=== PATIENT | female | born 1960 | race Caucasian/White ===

== ENCOUNTER 2020-05-11 16:51 | Inpatient (IN) | payer OTHER, SELFPAY ==
[2020-05-11] VITALS (12 sets, daily range): BP systolic 98–142; BP diastolic 68–110; PULSE 106–129; RESP 12–22; TEMP 36.3–36.4; O2SAT 98–100; BMI 28.0
--- NOTE | 2020-05-11 16:56 | ED_ITS ---
HPI - Chest Pain General Stated Complaint: unresponsive - STEMI Time Seen by Provider: 05/11/20 16:53 Source: patient and EMS Mode of arrival: EMS Limitations: altered mental status History of Present Illness HPI narrative: Patient presents via EMS with an EKG that shows acute STEMI. They were called to the house for severe chest pain. She went into V. tach twice in route and needed shocking. Both times she responded quickly. When she arrived here she was unconscious. She slowly regained consciousness and when I asked how she felt she said fine. I woke her up to explain that she was going to the cardiac [facility] and she seems surprised. She is unable to answer asked questions but she is able to answer them. Dr. Banks is here to take her to the cardiac [facility]. Her history includes mitral valve replacement but has Dr. Banks points out there is no scar on her chest. MD complaint: chest pain Pertinent past history: other (Mitral valve disease) Onset (ago): hour(s) Timing of current episode: constant Onset: during rest Severity: severe Review of Systems Review of Systems: Narrative: Review of systems unavailable because the pa gretel is having difficulty with communication. [facility], [facility] Past Medical History Medical History (Updated 05/11/20 @ 16:58 by Valerie Prado MD) Acute [place] ST elevation (STEMI) myocardial infarction Exam Narrative: Exam Narrative: GENERAL: Unconscious, pale, diaphoretic. HEAD: Normocephalic, atraumatic. ENT: Nares clear, no rhinorrhea or epistaxis. Mucous membranes moist. NECK: Supple. CHEST: Clear to auscultation. No respiratory distress. HEART: Regular rate and rhythm. No murmur heard. Normal peripheral pulses. ABDOMEN: Soft, nontender, nondistended, normal active bowel sounds. EXTREMITIES: Normal range of motion. No edema. SKIN: Warm, dry, no rash. NEURO: Initially unconscious and slowly waking up.. Course Consultations Consultation #1: STEMI called and Dr. Banks responded quickly. Date: 05/11/20 Time: 16:59 MDM - Chest Pain Differential Diagnosis Differential diagnosis: Likely st elevation myocardial infarction Medical Records Data Attestation: I reviewed the patient's medical records. Critical Care Time Critical Care Time Critical Care Time: Yes Total Critical Care Time: 30 Discharge Plan Discharge Clinical Impression: Acute [place], ST elevation (STEMI) myocardial infarction, V tach Patient Disposition: Still a Patient Condition: Guarded Prognosis
--- NOTE | 2020-05-11 16:58 | ECG_ITS ---
Measurements Intervals [place] Rate: 124 P: CT: 0 QRS: -39 QRSD: 101 T: 89 QT: 316 QTc: 455 Interpretive Statements ATRIAL FIBRILLATION WITH RAPID VENTRICULAR RESPONSE LEFT AXIS DEVIATION DELAYED PRECORDIAL R/S TRANSITION ST ABNORMALITY IN INF/LAT LEADS- CONSIDER ISCHEMIA BASELINE WANDER- II, III, ABNORMAL ECG Electronically Signed On 05-12-2020 6:53:44 CDT by Bony Castellon D.O.
[2020-05-11 17:11] LABS: Basophils Absolute Auto 0.1 K/mm3 (0.0-0.1); Basophils Percent Auto 0.6 % (0.2-1.2); Eosinophils Absolute Auto 0.2 K/mm3 (0-0.3); Eosinophils Percent Auto 1.1 % (0-4.4); Hematocrit 43.3 % (37.0-47.0); Hemoglobin 14.6 g/dL (12.0-15.0); Immature Granulocyte Absolute 0.04 K/mm3 (0.00-0.031); Immature Granulocyte Percent A 0.3 % (0-0.5); Lymphocytes Absolute Auto 6.88 K/mm3 (0.9-3.2); Lymphocytes Percent Auto 43.4 % (18.3-44.2); Mean Corpuscular HGB Conc 33.7 g/dl (32-36); Mean Corpuscular Hemoglobin 30.5 pg (26-34); Mean Corpuscular Volume 90.6 fl (80-100); Mean Platelet Volume 10.9 fl (7.4-10.4); Monocytes Absolute Auto 1.4 K/mm3 (0.1-0.6); Monocytes Percent Auto 8.9 % (2.6-8.5); Neutrophils Absolute Auto 7.3 K/mm3 (1.3-6.7); Neutrophils Percent Auto 45.7 % (45.5-73.1); Platelet Count Result 296 k/mm3 (150-375); Red Blood Count 4.78 M/mm3 (4.2-5.4); Red Cell Distribution Width 12.8 % (11.5-14.5); White Blood Count 15.9 K/mm3 (4.5-10.0)
[2020-05-11 17:20] LABS: INR 1.1; Prothrombin Time 13.6 Seconds (11.1-14.7)
[2020-05-11 17:25] LABS: Add Urine Microscopic? YES; Appearance Urine Clear (Clear); Bilirubin Urine Negative (Negative); Blood Urine 1+ (Negative); Color Urine Yellow (Yellow); Glucose Urine UA Negative (Negative); Ketones Urine Negative (Negative); Leukocyte Esterase Ur Negative LEU/UL (Negative); Mucus Urine Rare /lpf; Nitrate Urine Negative (Negative); Protein Urine 1+ mg/dL (Negative); Specific Grav Ur 1.012 (1.001-1.035); Squamous Epithelial Cell Urine Rare /hpf (Few); Urobilinogen Urine Negative mg/dL (<2.0); WBC Urine 0-3 /hpf
--- NOTE | 2020-05-11 17:28 | PC.NURSE ---
1635 EMS faxed over EKG and called a STEMI in the field. 1639 gave EMS report for STEMI 1640 Cath paged for code STEMI 1645 EMS called back to state Pt. went unresponsive. Pt. was shocked x2 in the field with v tach and v fib. Pt. was shocked into sinus tach. Pt. was given 4 baby aspirins by EMS and 1 nitro spray. 1650 EMS arrives to ED. 1650 labview programmer team arrives. 1650 Pt. is unresponsive but breathing with a strong carotid pulse. Pt. is in sinus tachycardia. 1650 Pt. is on 4L via nasal cannula of O2. 1652 Second IV obtained [address] 1658 Hospital EKG obtained 1704 Blood and urine sent to lab. 1710 wastewater analyst lab analyst team takes Pt. to the labview programmer.
[2020-05-11 17:36] LABS: Troponin I < 0.012 ng/mL (0.000-0.034)
[2020-05-11 17:39] LABS: NT Pro B Type Natriuretic Pept 745 PG/ML (5-100)
[2020-05-11 17:41] LABS: Albumin Level 4.9 g/dL (3.5-5.1); Alkaline Phosphatase 63 U/L (38-126); Anion Gap 26 mmol/L (8-16); Aspartate Amino Transferase 52 U/L (14-36); Bilirubin,Total 0.7 mg/dL (0.2-1.3); Blood Urea Nitrogen 16 mg/dL (7-17); Calcium 9.8 mg/dL (8.4-10.2); Carbon Dioxide 11 mmol/L (22-30); Chloride 98 mmol/L (98-107); Estimated Glomerular Filt Rate 42; Glucose 209 mg/dL (65-105); Potassium 3.4 mmol/L (3.4-5.0); Sodium 135 mmol/L (137-145)
[2020-05-11 17:58] LABS: Alanine Aminotransferase 34 U/L (4-35)
--- NOTE | 2020-05-11 18:13 | ECG_ITS ---
Measurements Intervals [place] Rate: 116 P: NC: 0 QRS: 5 QRSD: 114 T: 108 QT: 333 QTc: 463 Interpretive Statements ATRIAL FIBRILLATION WITH RAPID VENTRICULAR RESPONSE INTRAVENTRICULAR CONDUCTION DELAY DELAYED PRECORDIAL R/S TRANSITION ST-T WAVE ABNORMALITY IN HIGH LATERAL LEADS- CONSIDER ISCHEMIA BASELINE ARTIFACT- II, III, AVR, AVL, AVF ABNORMAL ECG Electronically Signed On 05-12-2020 7:04:26 CDT by Bony Castellon D.O.
--- NOTE | 2020-05-11 18:22 | WPDCARDPROC ---
Cardiac Cath Procedure Note Date of procedure:: 05/11/20 Performing physician:: Earl Banks MD Indication:: acute ST-elevation DC ventricular fibrillation history of mitral valve annuloplasty Brief clinical history:: this is a 58-year-old woman known to me prior to this encounter she came to the hospital by EMS where she was at home experiencing severe retrosternal chest burning. On the scene the patient arrest with ventricular fibrillation and was cover shock. Electrocardiogram in the field appeared to be compatible with acute ST-elevation DC anterolateral wall. On route she had another episode of the fibula was counter shocked a 2nd time. In this setting emergency angiogram has been requested. Procedure Procedure performed:: Emergency coronary angiography emergency left main PCI IVUS of the left main following stenting left ventriculography Sedation/Medication given:: no sedation provided in the quality assurance qa lab analyst Access site:: right femoral artery Estimated blood loss:: 50 cc Procedure note:: patient was brought to the catheterization lab in the emergency setting described above. Patient was lethargic and soft semi responsive was not sedated for lidocaine was injected following sterile prep of the right femoral triangle and using the modified Seldinger technique the femoral artery was punctured and a 6 [place] vascular sheath was placed. After this I used a 5 [place] JR4 catheter to engage inject the right coronary artery. Following this the left coronary artery was engaged and injected using a 6 [place] CLS 3.5 guiding catheter. Following this emergency left main intervention was carried out as detailed below. Following intervention the left main was examined with intravascular ultrasound. Following this the interventional equipment was withdrawn and a 5 [place] angled pigtail catheter was used to perform a left ventriculogram in the demonstrate left-sided hemodynamics. The sheath was sutured in position. The patient was taken to the ICU for post DC PCI recovery. The patient was stable hemodynamically and hemodynamic support was not felt to be necessary. Findings:: Hemodynamics: Central aortic pressure is 128/84 left ventricle 128/5 end-diastolic pressure 22. There is no gradient across the aortic valve on pullback. Left ventricle: The LV is of normal size the entire anterolateral wall is akinetic. The infero posterior segment is hyperdynamic the global ejection fraction is about 25% the left main coronary artery is 100% occluded in its midportion appearance of this is an acute abrupt thrombotic occlusion. The right coronary artery is very large in caliber dominant to the posterior circulation with several large posterolateral branches as well. The right coronary artery is widely patent and angiographically normal. The left main coronary occlusion was crossed using a 0.014 BMW coronary guidewire. Following this there was reasonably good flow in the left main just crossing it with a guidewire. The left main was then pre-dilated using a 3 x 15 mm emerge PTCA balloon. Following this I placed a 2.014nd BMW wire into the left anterior descending as the 1st wire was in small branch of the circumflex. After this the 1st guidewire was withdrawn. Following this the mid left main occlusion the target lesion was stented using a 3.5 by 15 mm Orsiro stent with very good angiographic result. Following this volcano IVUS imaging was used to document good stent strut apposition. The imaging did demonstrate incomplete expansion of the stent in the proximal segment. There was therefore expanded further using a 4 by 15 mm noncompliant balloon at 20 atmospheres. Following this I have a still demonstrated suboptimal stent apposition and I used a 5 mm x 15 noncompliant balloon at 5 atmospheres which provided very good strut apposition. The patient was remarkably stable hemodynamically during this procedure. The sheath was sutured into positi
--- NOTE | 2020-05-11 18:34 | PM.IMHP ---
H&P: HPI History of Present Illness Date/Time: date of service:05/11/20 18:34 Chief complaint: Acute myocardial infarction, VFib Narrative: Ted Rasmussen is a 58 year old female Who is unknown to me prior to this encounter. I came to see the patient in the emergency room. She was brought to the hospital by EMS complaining of burning chest pain that began acutely at her home. While being evaluated she or abruptly developed ventricular fibrillation and was counter shocked back to sinus rhythm in the field. Her electrocardiogram demonstrated evidence of acute anterolateral infarction. On route I believe she developed VFib a 2nd time it was counter shocked a 2nd time. Apparently there is no previous history of coronary artery disease she has a history of mitral valve repair in the past we do not have any records regarding that band at this time. Patient is semi responsive and not able to provide any additional history. Review of Systems Review of Systems: ROS unobtainable: Yes unobtainable due to medical condition [facility] Past Medical History Medical History (Updated 05/11/20 @ 16:58 by Valerie Prado MD) Acute [place] ST elevation (STEMI) myocardial infarction Social History Social History Gender identity (if verbalized by the patient): Female Meds Home Medications and Allergies Allergies Allergy/AdvReac Type Severity Reaction Status Date / Time No Known Allergies Allergy Verified 05/11/20 17:42 Vital Signs Vital Signs - 24 hr 05/11/20 16:50 Temperature 36.3 C L Pulse Rate 129 H Respiratory Rate 21 H Blood Pressure 142/110 H Pulse Oximetry 99 Exam Const: Other: Semi responsive white female appears to be her stated age HENMT: Mouth: Yes dry mucous membranes Eyes: Sclera: sclerae normal Pupils: Equal, round and reactive pupils present Neck: Neck: supple and no JVD Thyroid: thyroid normal Other: carotid upstrokes are intact no obvious bruits Resp: Effort & Inspection: normal respiratory effort Other: rales about 1/3 up on both sides Cardio: Rate: regular rate Rhythm: regular rhythm Other: no murmur no gallop S1-S2 are normal but diminished in intensity GI: Auscultation: normal bowel sounds : External Female Exam: normal external appearance Skin: General skin exam: normal color Neuro: Other: lethargic semi responsive white female Extrem: General: normal to inspection H&P: Results Labs Labs: Short CBC 05/11/20 Range/Units 17:04 WBC 15.9 H (4.5-10.0) K/mm3 Hgb 14.6 (12.0-15.0) g/dL Hct 43.3 (37.0-47.0) % Plt Count 296 (150-375) k/mm3 BMP 05/11/20 17:04 Sodium 135 L Potassium 3.4 Chloride 98 Carbon Dioxide 11 L BUN 16 Creatinine 1.30 H Glucose 209 H Calcium 9.8 Cardiac Enzymes 05/11/20 Range/Units 17:04 Troponin I < 0.012 (0.000-0.034) ng/mL Liver Function 05/11/20 Range/Units 17:04 Total Bilirubin 0.7 (0.2-1.3) mg/dL AST 52 H (14-36) U/L ALT 34 (4-35) U/L Alkaline Phosphatase 63 (38-126) U/L Albumin 4.9 (3.5-5.1) g/dL Urine 05/11/20 Range/Units 17:05 Urine Color Yellow (Yellow) Urine Appearance Clear (Clear) Urine pH 6.0 (5.0-9.0) Ur Specific [place] 1.012 (1.001-1.035) Urine Protein 1+ H (Negative) mg/dL Urine Glucose (UA) Negative (Negative) mg/dL Assessment and Plan Additional Plan acute ST segment elevation NC in this 58-year-old lady with history of previous mitral valve repair. Plans are being made for emergency angiography and revascularization as indicated by those findings Earl Banks MD [facility]
[2020-05-11] MEDS: AMIODARONE 360 MG/D5W 200 ML 360 MG/200 ML BAG 33.3 MG IV CONT (19:47)
[2020-05-11] MEDS: SODIUM CHLORIDE 0.45% 1,000 ML 125 ML IV CONT (19:47)
[2020-05-11 20:25] LABS: Cholesterol 191 mg/dL (0-200); HDL Direct 56 mg/dL; Triglycerides 115 mg/dL (<150)
[2020-05-11] MEDS: TICAGRELOR 90 MG TABLET 180 MG PO (20:28)
[2020-05-11 20:36] LABS: LDL Cholesterol Direct 101 mg/dL
[2020-05-11 21:07] LABS: Amphetamine Screen Urine Negative (Negative); Barbiturate Screen Urine Negative (Negative); Benzodiazepines Screen Urine Positive (Negative); Cannabinoid Screen Urine Positive (Negative); Cocaine Screen Urine Negative (Negative); Methadone Screen Urine Negative (Negative); Opiate Screen Urine Negative (Negative); Phencyclidine Screen Urine Negative (Negative)
[2020-05-12] VITALS (21 sets, daily range): BP systolic 86–137; BP diastolic 63–97; PULSE 95–122; RESP 12–22; TEMP 36.7–37.2; O2SAT 95–100
[2020-05-12] MEDS: AMIODARONE 360 MG/D5W 200 ML 360 MG/200 ML BAG 16.7 MG IV CONT ×2 (01:38→13:24)
[2020-05-12] MEDS: SODIUM CHLORIDE 0.45% 1,000 ML 125 ML IV CONT ×2 (04:05→11:26)
--- NOTE | 2020-05-12 05:11 | ECG_ITS ---
Measurements Intervals [place] Rate: 118 P: SD: 0 QRS: -27 QRSD: 95 T: 121 QT: 319 QTc: 448 Interpretive Statements ATRIAL FIBRILLATION WITH RAPID VENTRICULAR RESPONSE BORDERLINE R WAVE PROGRESSION, ANTERIOR LEADS ST-T WAVE ABNORMALITY IN HIGH LATERAL LEADS- CONSIDER ISCHEMIA ABNORMAL ECG Electronically Signed On 05-12-2020 9:23:49 CDT by Bony Castellon D.O.
[2020-05-12 08:18] LABS: Basophils Percent Auto 0.2 % (0.2-1.2); Eosinophils Percent Auto 0.1 % (0-4.4); Hematocrit 38.9 % (37.0-47.0); Hemoglobin 13.3 g/dL (12.0-15.0); Immature Granulocyte Absolute 0.07 K/mm3 (0.00-0.031); Immature Granulocyte Percent A 0.5 % (0-0.5); Lymphocytes Absolute Auto 2.09 K/mm3 (0.9-3.2); Lymphocytes Percent Auto 14.3 % (18.3-44.2); Mean Corpuscular HGB Conc 34.2 g/dl (32-36); Mean Corpuscular Hemoglobin 30.3 pg (26-34); Mean Corpuscular Volume 88.6 fl (80-100); Mean Platelet Volume 10.5 fl (7.4-10.4); Monocytes Absolute Auto 0.8 K/mm3 (0.1-0.6); Monocytes Percent Auto 5.3 % (2.6-8.5); Neutrophils Absolute Auto 11.6 K/mm3 (1.3-6.7); Neutrophils Percent Auto 79.6 % (45.5-73.1); Platelet Count Result 258 k/mm3 (150-375); Red Blood Count 4.39 M/mm3 (4.2-5.4); Red Cell Distribution Width 12.9 % (11.5-14.5); White Blood Count 14.6 K/mm3 (4.5-10.0)
[2020-05-12] MEDS: LOSARTAN POTASSIUM 12.5 MG TABLET PO (08:26)
[2020-05-12] MEDS: ASPIRIN 81 MG CHEWABLE TABLET PO (08:26)
[2020-05-12] MEDS: ROSUVASTATIN 10 MG TABLET 20 MG PO (08:27)
[2020-05-12] MEDS: SPIRONOLACTONE 12.5 MG TABLET PO (08:27)
[2020-05-12 08:48] LABS: Alanine Aminotransferase 31 U/L (4-35); Albumin Level 4.1 g/dL (3.5-5.1); Alkaline Phosphatase 64 U/L (38-126); Anion Gap 9 mmol/L (8-16); Aspartate Amino Transferase 62 U/L (14-36); Bilirubin,Total 0.4 mg/dL (0.2-1.3); Blood Urea Nitrogen 13 mg/dL (7-17); Calcium 8.6 mg/dL (8.4-10.2); Carbon Dioxide 22 mmol/L (22-30); Chloride 97 mmol/L (98-107); Estimated CRCL calculation 69 ml/min; Estimated Glomerular Filt Rate > 60; Glucose 144 mg/dL (65-105); Magnesium 1.8 mg/dL (1.6-2.3); Potassium 3.9 mmol/L (3.4-5.0); Sodium 128 mmol/L (137-145)
[2020-05-12] MEDS: TICAGRELOR 90 MG TABLET PO ×2 (09:20→21:32)
[2020-05-12] MEDS: carvediloL 3.125 MG TABLET PO (09:20)
[2020-05-12] MEDS: ONDANSETRON INJ 4 MG/2 ML VIAL IV PUSH ×2 (10:28→15:34)
--- NOTE | 2020-05-12 10:44 | WPDCNINT ---
Assessment and Plan Assessment and plan (1) ST elevation (STEMI) myocardial infarction: Code(s): I21.3 - ST elevation (STEMI) myocardial infarction of unspecified site Status: Acute Assessment and Plan: status post PCI of left main coronary artery and drug-eluting stent placement continue aspirin Coreg losartan Crestor and Brilinta (2) V tach: Code(s): I47.2 - Ventricular tachycardia Status: Acute Assessment and Plan: likely secondary to ischemia. Patient currently on amiodarone infusion which she will complete today. Continue beta-earlene further amiodarone dosing per cardiology will give 1 g of magnesium sulfate for Mag level of 1.8 (3) Ischemic cardiomyopathy: Code(s): I25.5 - Ischemic cardiomyopathy Status: Acute Assessment and Plan: left ventriculogram suggested EF of 25% echo ordered and pending hemodynamically stable on ARB, beta-earlene and Aldactone (4) Essential hypertension: Code(s): I10 - Essential (primary) hypertension Status: Acute Assessment and Plan: blood pressure uncontrolled range with current beta-earlene and losartan does monitor and treat as needed (5) Hyperlipidemia: Code(s): E78.5 - Hyperlipidemia, unspecified Status: Acute Assessment and Plan: continue crest (6) Nausea: Code(s): R11.0 - Nausea Status: Acute Assessment and Plan: Zofran p.r.n. 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 On arrival to ED patient was found to be having ST-elevation VT. Patient was taken for emergency cardiac catheterization which showed lesion in left main coronary artery and a drug-eluting stent was placed. Patient also started on amiodarone infusion. Post procedure patient was admitted to ICU for further evaluation management. When I saw this patient this morning she complains of nausea did not had any episode of vomiting overnight. Does want to try food this morning as she was NPO until this morning. She denies any chest pain at this time or shortness of breath. Feels anxious about all her medical concerns and requesting that her Xanax be resumed Patient denies fever, chest pain, shortness of breath, cough, body aches, abdominal pain,, diarrhea, headache or constipation. Review of Systems Review of Systems: All systems reviewed & are unremarkable except as noted in HPI and below (HPI) [facility] Past Medical History Medical History Acute [place] ST elevation (STEMI) myocardial infarction Family History Family History (Updated 05/11/20 @ 19:11 by Marge Gregg RN) Mother Diabetes mellitus Hypertension Father Colon cancer Diabetes mellitus Congestive heart failure (CHF) Hypertension Kidney disease Colon adenocarcinoma Sibling Diabetes mellitus Social History Social History Years smoked: 2 Smoking status: Former smoker Tobacco type: cigarettes Smoking end date: 03/24/20 Alcohol intake: never Substance use: never Substance use type: does not use Gender identity (if verbalized by the patient): Female Spiritual care concerns: No Meds Home Medications and Allergies Home Medications Medication Instructions Recorded Confirmed Type alprazolam [Xanax] 1 mg PO TID PRN 05/11/20 05/11/20 History bupropion HCl 150 mg PO QAM
[2020-05-12] MEDS: ALPRAZolam 0.5 MG TABLET 1 MG PO ×2 (10:54→16:11)
[2020-05-12] MEDS: MAGNESIUM SULF 1 GM/D5W 100 ML 1 GM/100 ML BAG IVPB (11:32)
--- NOTE | 2020-05-12 13:56 | PM.PNCARD ---
Progress Note: A&P Assessment and Plan (1) ST elevation (STEMI) myocardial infarction: Code(s): I21.3 - ST elevation (STEMI) myocardial infarction of unspecified site Status: Acute Assessment and Plan: acute thrombotic occlusion of left main status post balloon angioplasty and stent implantation. Continue aspirin and Brilinta, statin, beta-earlene, spironolactone, and ARB. Patient is hemodynamically stable at this time. Asymptomatic. ischemic cardiomyopathy EF 25%. Compensated. Life vest prior to discharge as she remains at increased VT VF risk. Spent over 35 minutes with the patient and her explaining the absolute importance of compliance with recommendations, follow-up and medications particularly aspirin, Brilinta, statin, and beta-earlene therapy. Explained the OH and/or risk with noncompliance Particular given location of her infarction and stent within the left main. she will follow-up with her private director sales training Dr. Strauss as an outpatient. I contacted Dr. Strauss informed her of her of the patient's admission and events to date. Transfer to IMU status with telemetry. Patient is aware she remains at high risk for complications. We discussed eventual plans for cardiac rehabilitation, lifestyle modification, diet, exercise compliance with recommendations to follow-up. Patient and her verbalized understanding and appreciated time spent in explanation provided. All questions were answered to their satisfaction. DC IV fluids, discontinue Lin catheter. Monitor laboratory studies. (2) Atrial fibrillation with rapid ventricular response: Code(s): I48.91 - Unspecified atrial fibrillation Status: Acute Assessment and Plan: stable hemodynamically, asymptomatic. New diagnosis rate marginally controlled on intravenous amiodarone. Change carvedilol to Metoprolol with plans to transition to Toprol XL prior to discharge for improved rate control. Continue IV amiodarone for the time being. Will hold off on systemic anticoagulation to reduce bleeding risk post intervention and dual antiplatelet therapy. If cardioversion and/or if atrial fibrillation remains persistent despite IV amiodarone will initiate systemic anticoagulation. Explained this decision process in detail to the patient and her . (3) Ischemic cardiomyopathy: Code(s): I25.5 - Ischemic cardiomyopathy Status: Acute Assessment and Plan: Compensated, EF 25%. Continue optimization medical therapy. (4) Ventricular fibrillation: Code(s): I49.01 - Ventricular fibrillation Status: Acute Assessment and Plan: Secondary to acute ST-elevation OH with acute thrombotic occlusion of left main. Given severe LV dysfunction she remains at high risk for sudden cardiac . Life vest prior to discharge. (5) Essential hypertension: Code(s): I10 - Essential (primary) hypertension Status: Acute Assessment and Plan: Stable. (6) Hyperlipidemia: Code(s): E78.5 - Hyperlipidemia, unspecified Status: Acute Assessment and Plan: Goal LDL less than 70. Rosuvastatin 20 mg at bedtime initiated. (7) History of mitral valve repair: Code(s): Z98.890 - Other specified postprocedural states Status: Acute Assessment and Plan: Stable, no acute issues. 2D echocardiogram. Time Spent With Patient Time with patient: Greater than 35 minutes Subjective Date/time seen: date of service:05/12/20 13:56 Follow-up for ST-elevation OH, VFib arrest status post left main stenting Patient feels fairly well. fatigued, no nausea vomiting today. Eating and drinking well. Denies shortness of breath or chest pain. Has no pain at her right groin access site. Denies cough, bleeding or fevers or chills. Review of Systems Review of Systems: All systems reviewed & are unremarkable except as noted in HPI and below Constitutional: Constitu
--- NOTE | 2020-05-12 14:06 | ECHO_ITS ---
Patient Info Name: Ted Rasmussen Age: 59 years : 1960 Gender: Female Ht: 68 in Wt: 187 lbs BSA: 2.04 m2 HR: 115 bpm BP: 119 / 89 mmHg Heart Rhythm: Atrial Fibrillation Technical Quality: Fair Exam Date: 05/12/2020 3:02 PM Exam Location: [facility] Patient Status: Inpatient Admit Date: 05/11/2020 Staff Ordering Physician: Alex Mays MD Auto Appraiser: Lai Marquez RDCS Attending Provider: Earl Banks MD Referring Physician: Davon AKERS; Exam Type: CA echo dop color flow w con Study Info Indications I21.01 - ST elevation (STEMI) myocardial infarction involving left main coronary artery Complete two-dimensional, color flow and Doppler transthoracic echocardiogram is performed with contrast to opacify the left ventricle and to improve the deliniation of the left ventricle endocardial borders. Contrast/Agitated Saline Contrast/Ag. Saline: Definity Amount: 3.00 ml Administered By: Tess Candelaria RN Existing IV Access: Yes History/Risk Factors STEMI of Left main; ICM w/ MV repair, CKD, HTN, CHF. Summary 1. Left ventricular systolic function is severely reduced, estimated at 25-30%. 2. Akinetic anterior, apical septal, mid inferoseptal, apical lateral, mid anterolateral garcia. [place] was not well visualized in several views. 3. Technically difficult study with limited views despite definity contrast enhancement. 4. The mitral valve was notwell visualized although and parasternal long-axis view the leaflets appeared thickened.. 5. There is trace tricuspid valve regurgitation. 6. Moderate pulmonary hypertension, estimated pulmonary arterial systolic pressure is 47 mmHg. Left Ventricle Left ventricular chamber dimension is normal. Left ventricular systolic function is severely reduced, estimated at 25-30%. There is no increased left ventricular wall thickness. The left ventricular diastolic function is indeterminate. E/e' 24.62 is severely elevated. Technically difficult study with limited views despite definity contrast enhancement. Akinetic anterior, apical septal, mid inferoseptal, apical lateral, mid anterolateral garcia. [place] was not well visualized in several views. Right Ventricle Right ventricular chamber dimension is not well visualized. Left Atria Left atrial chamber dimension is not well visualized. Right Atria Right atrial chamber dimension is not well visualized. Aortic Valve The aortic valve is not well visualized. There is no aortic valve stenosis. There is no aortic valve regurgitation. Pulmonic Valve The pulmonic valve is not well visualized. Mitral Valve The mitral valve was notwell visualized although and parasternal long-axis view the leaflets appeared thickened.. Tricuspid Valve The tricuspid valve leaflets are not well visualized. There is trace tricuspid valve regurgitation. Moderate pulmonary hypertension, estimated pulmonary arterial systolic pressure is 47 mmHg. Pericardium/Pleural The pericardium appears not well visualized. Inferior Vena Cava Normal inferior vena cava with no collapse upon inspiration consistent with Empty right atrial pressure, 10 mmHg. Aorta The aortic root size at the sinus of Valsalva is normal. Left Ventricular Outflow Tract Name Value Normal
[2020-05-12] MEDS: PERFLUTREN LIPID MICROSPHERES 1.5 ML VIAL DILUTED TO 10 ML TOTAL VOLUME IV PUSH (15:52)
[2020-05-12] MEDS: METOPROLOL TARTRATE 25 MG TABLET PO ×2 (16:10→21:32)
--- NOTE | 2020-05-12 19:14 | ECG_ITS ---
Measurements Intervals [place] Rate: 116 P: 101 MI: 244 QRS: -38 QRSD: 111 T: 126 QT: 366 QTc: 509 Interpretive Statements SINUS OR ECTOPIC ATRIAL TACHYCARDIA WITH FIRST DEGREE AV BLOCK LEFT AXIS DEVIATION BORDERLINE R WAVE PROGRESSION, ANTERIOR LEADS MINIMAL Q WAVES- HIGH LATERAL LEADS ST-T WAVE ABNORMALITY IN HIGH LATERAL LEADS- CONSIDER ISCHEMIA BASELINE WANDER- I, III, AVL ABNORMAL ECG Electronically Signed On 05-13-2020 11:06:33 CDT by Bony Castellon D.O.
[2020-05-13] VITALS (23 sets, daily range): BP systolic 92–120; BP diastolic 58–90; PULSE 62–125; RESP 15–23; TEMP 35.9–37.2; O2SAT 95–99
[2020-05-13] MEDS: AMIODARONE 360 MG/D5W 200 ML 360 MG/200 ML BAG 16.7 MG IV CONT ×3 (01:13→22:39)
[2020-05-13 04:38] LABS: Hematocrit 36.9 % (37.0-47.0); Hemoglobin 13.1 g/dL (12.0-15.0); Mean Corpuscular HGB Conc 35.5 g/dl (32-36); Mean Corpuscular Hemoglobin 31.3 pg (26-34); Mean Corpuscular Volume 88.3 fl (80-100); Mean Platelet Volume 11.1 fl (7.4-10.4); Platelet Count Result 212 k/mm3 (150-375); Red Blood Count 4.18 M/mm3 (4.2-5.4); Red Cell Distribution Width 12.9 % (11.5-14.5); White Blood Count 13.4 K/mm3 (4.5-10.0)
[2020-05-13 04:52] LABS: Alanine Aminotransferase 34 U/L (4-35); Albumin Level 3.7 g/dL (3.5-5.1); Alkaline Phosphatase 64 U/L (38-126); Anion Gap 9 mmol/L (8-16); Aspartate Amino Transferase 73 U/L (14-36); Bilirubin,Total 0.6 mg/dL (0.2-1.3); Blood Urea Nitrogen 10 mg/dL (7-17); Calcium 8.4 mg/dL (8.4-10.2); Carbon Dioxide 23 mmol/L (22-30); Chloride 95 mmol/L (98-107); Estimated CRCL calculation 69 ml/min; Estimated Glomerular Filt Rate > 60; Glucose 126 mg/dL (65-105); Magnesium 1.9 mg/dL (1.6-2.3); Potassium 3.9 mmol/L (3.4-5.0); Sodium 127 mmol/L (137-145)
[2020-05-13] MEDS: METOPROLOL TARTRATE 25 MG TABLET PO ×3 (05:27→21:32)
[2020-05-13] MEDS: ROSUVASTATIN 10 MG TABLET 20 MG PO (08:23)
[2020-05-13] MEDS: ASPIRIN 81 MG CHEWABLE TABLET PO (08:23)
[2020-05-13] MEDS: LOSARTAN POTASSIUM 12.5 MG TABLET PO (08:23)
[2020-05-13] MEDS: buPROPion HCL XL (24 HR) 150 MG TABCR PO (08:24)
[2020-05-13] MEDS: SPIRONOLACTONE 12.5 MG TABLET PO (08:24)
[2020-05-13] MEDS: TICAGRELOR 90 MG TABLET PO ×2 (08:24→21:31)
[2020-05-13] MEDS: ALPRAZolam 0.5 MG TABLET 1 MG PO ×2 (08:31→21:39)
--- NOTE | 2020-05-13 13:30 | PC.NURSE ---
This patient, Ted Rasmussen, was received from [ICU-10] on 05/13/20 at 1330. REPORT RECEIVED FROM TARIK MONTES. Personal belongings list checked and signed. Patient/family oriented to unit policies and routines
--- NOTE | 2020-05-13 13:33 | PC.NURSE ---
Transferred pt to 201 via wheelchair with belongings in patients lap. Patient walked to bed, amio gtt maintained and stayed on. Report given to Nedra MONTES. Medications sent to financial secretary.
--- NOTE | 2020-05-13 13:39 | PM.PNCARD ---
Progress Note: A&P Assessment and Plan (1) ST elevation (STEMI) myocardial infarction: Code(s): I21.3 - ST elevation (STEMI) myocardial infarction of unspecified site Status: Acute Assessment and Plan: acute thrombotic occlusion of left main status post balloon angioplasty and stent implantation. Continue aspirin and Brilinta, statin, beta-earlene, spironolactone, and ARB. Patient is hemodynamically stable at this time. Asymptomatic. ischemic cardiomyopathy EF 25%. Compensated. Life vest prior to discharge as she remains at increased VT VF risk. Spent over 35 minutes with the patient and her explaining the absolute importance of compliance with recommendations, follow-up and medications particularly aspirin, Brilinta, statin, and beta-earlene therapy. Explained the MD and/or risk with noncompliance Particular given location of her infarction and stent within the left main. 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 Strauss as an outpatient. I contacted Dr. Strauss informed her of her of the patient's admission and events to date. Transfer to IMU status with telemetry. Patient is aware she remains at high risk for complications. We discussed eventual plans for cardiac rehabilitation, lifestyle modification, diet, exercise compliance with recommendations to follow-up. Patient and her verbalized understanding and appreciated time spent in explanation provided. All questions were answered to their satisfaction. DC IV fluids, discontinue Lin catheter. Monitor laboratory studies. (2) Atrial fibrillation with rapid ventricular response: Code(s): I48.91 - Unspecified atrial fibrillation Status: Acute Assessment and Plan: stable hemodynamically, asymptomatic. now atrial flutter with variable AV block. Changed to Toprol XL prior to discharge. NPO after midnight for anticipated IVAN guided cardioversion with Anesthesiology given relative hypotension to restore sinus rhythm. Enoxaparin 1 milligram/kilogram due again this evening. Discussed risks, benefits and alternatives in detail to the patient and her . All questions answered to their satisfaction. Recommendations to Follow. (3) Ischemic cardiomyopathy: Code(s): I25.5 - Ischemic cardiomyopathy Status: Acute Assessment and Plan: Compensated, EF 25-30%. Continue optimization medical therapy. Patient requires life vest prior to discharge given severe LV dysfunction EF 25%, presentation with ventricular fibrillations status post defibrillation x2 due to left main stenosis as patient remains at high risk for sudden cardiac . I have discussed this with the patient and her who verbalized understanding and agreed with the plan of care. They wish to proceed with LifeVest. All questions answered to their satisfaction. They are aware of the benefits with regards reduction sudden cardiac and its limitations. We will set this up prior to discharge. She is very familiar with this device as her father is currently wearing the same device. (4) Ventricular fibrillation: Code(s): I49.01 - Ventricular fibrillation Status: Acute Assessment and Plan: Secondary to acute ST-elevation MD with acute thrombotic occlusion of left main. Given severe LV dysfunction she remains at high risk for sudden cardiac . Life vest prior to discharge. (5) Essential hypertension: Code(s): I10 - Essential (primary) hypertension Status: Acute Assessment and Plan: Stable, although relatively hypotensive intemrittently. (6) Hyperlipidemia: Code(s): E78.5 - Hyperlipidemia, unspecified Status: Acute Assessment and Plan: Goal LDL less than 70. Rosuvastatin 20 mg at bedtime initiated. (7) History of mitral valve repair: Code(s): Z98.890 - Other specified postprocedural states Status: Acute Assessment and Plan: [place]
[2020-05-13] MEDS: ONDANSETRON INJ 4 MG/2 ML VIAL IV PUSH ×2 (17:36→21:30)
[2020-05-13] MEDS: ENOXAPARIN 100 MG/ML SYRINGE 85 MG SUB-Q (21:03)
[2020-05-14] VITALS (18 sets, daily range): BP systolic 80–123; BP diastolic 59–98; PULSE 72–126; RESP 12–24; TEMP 36–36.8; O2SAT 94–100
[2020-05-14 04:50] LABS: Hematocrit 37.6 % (37.0-47.0); Hemoglobin 13.1 g/dL (12.0-15.0); Mean Corpuscular HGB Conc 34.8 g/dl (32-36); Mean Corpuscular Hemoglobin 31.1 pg (26-34); Mean Corpuscular Volume 89.3 fl (80-100); Mean Platelet Volume 11.8 fl (7.4-10.4); Platelet Count Result 216 k/mm3 (150-375); Red Blood Count 4.21 M/mm3 (4.2-5.4); Red Cell Distribution Width 12.7 % (11.5-14.5); White Blood Count 12.5 K/mm3 (4.5-10.0)
[2020-05-14 05:08] LABS: Alanine Aminotransferase 36 U/L (4-35); Albumin Level 3.7 g/dL (3.5-5.1); Alkaline Phosphatase 85 U/L (38-126); Anion Gap 7 mmol/L (8-16); Aspartate Amino Transferase 49 U/L (14-36); Bilirubin,Total 0.8 mg/dL (0.2-1.3); Blood Urea Nitrogen 9 mg/dL (7-17); Calcium 8.4 mg/dL (8.4-10.2); Carbon Dioxide 24 mmol/L (22-30); Chloride 100 mmol/L (98-107); Estimated CRCL calculation 55 ml/min; Estimated Glomerular Filt Rate 57; Glucose 129 mg/dL (65-105); Magnesium 1.9 mg/dL (1.6-2.3); Potassium 3.8 mmol/L (3.4-5.0); Sodium 131 mmol/L (137-145)
[2020-05-14] MEDS: METOPROLOL TARTRATE 25 MG TABLET PO ×2 (05:08→16:42)
[2020-05-14] MEDS: ENOXAPARIN 100 MG/ML SYRINGE 85 MG SUB-Q (08:53)
[2020-05-14] MEDS: LOSARTAN POTASSIUM 12.5 MG TABLET PO (08:54)
[2020-05-14] MEDS: TICAGRELOR 90 MG TABLET PO (08:54)
[2020-05-14] MEDS: ASPIRIN 81 MG CHEWABLE TABLET PO (08:54)
[2020-05-14] MEDS: buPROPion HCL XL (24 HR) 150 MG TABCR PO (08:54)
[2020-05-14] MEDS: SPIRONOLACTONE 12.5 MG TABLET PO (08:55)
[2020-05-14] MEDS: ROSUVASTATIN 10 MG TABLET 20 MG PO (08:55)
--- NOTE | 2020-05-14 09:00 | ECG_ITS ---
Measurements Intervals [place] Rate: 93 P: [place]: 0 QRS: -54 QRSD: 97 T: 128 QT: 398 QTc: 497 Interpretive Statements ATRIAL FLUTTER/TACHYCARDIA LEFT ANTERIOR FASCICULAR BLOCK ANTEROLATERAL INFARCT- PROBABLY RECENT ST-T WAVE ABNORMALITY IN HIGH LATERAL LEADS- CONSIDER ISCHEMIA ABNORMAL ECG Electronically Signed On 05-14-2020 9:27:47 CDT by Bony Castellon D.O.
--- NOTE | 2020-05-14 12:10 | WPDANESEPP ---
Anes - Eval Pre Procedure Procedure: Operation Date: 05/11/20 17:05 Proposed Procedures p Left Heart Cath - Earl Banks MD Operation Date: 05/14/20 12:00 Proposed Procedures p Electrical Cardioversion - Alex Mays MD s Trans Esophageal Echo - Alex Mays MD Date/Time: 05/14/20 12:10 Surgeon: amilcar Preop Diagnosis: a flutter Pre Op Diagnosis: Acute myocardial infarction, VFib Patient Data Age: 59 Gender: F Height: 1.73 m Weight: 81.5 kg Last Vital Signs Temp 36.4 C 05/14/20 08:00 Pulse 94 05/14/20 12:00 Resp 16 05/14/20 08:00 BP 123/98 H 05/14/20 08:00 Pulse Ox 99 05/14/20 08:00 Allergies Allergy/AdvReac Type Severity Reaction Status Date / Time No Known Allergies Allergy Verified 05/11/20 17:42 Home Medications Medication Instructions Recorded Confirmed Type alprazolam [Xanax] 1 mg PO TID PRN 05/11/20 05/11/20 History bupropion HCl 150 mg PO QAM 05/11/20 05/11/20 History simvastatin 20 mg PO DAILY 05/11/20 05/11/20 History venlafaxine 37.5 mg PO DAILY 05/11/20 05/11/20 History Laboratory Tests 05/14/20 05/14/20 04:13 04:13 WBC 12.5 K/mm3 H K/mm3 (4.5-10.0) RBC 4.21 M/mm3 M/mm3 (4.2-5.4) Hgb 13.1 g/dL g/dL (12.0-15.0) Hct 37.6 % % (37.0-47.0) MCV 89.3 fl fl (80-100) MCH 31.1 pg pg (26-34) MCHC 34.8 g/dl g/dl (32-36) RDW 12.7 % % (11.5-14.5) Plt Count 216 k/mm3 k/mm3 (150-375) MPV 11.8 fl H fl (7.4-10.4) Sodium 131 mmol/L L mmol/L (137-145) Potassium 3.8 mmol/L mmol/L (3.4-5.0) Chloride 100 mmol/L mmol/L (98-107) Carbon Dioxide 24 mmol/L mmol/L (22-30) Anion Gap 7 mmol/L L mmol/L (8-16) BUN 9 mg/dL mg/dL (7-17) Creatinine 1.00 mg/dL mg/dL (0.7-1.0) Estim Creat Clear Calc 55 ml/min ml/min Estimated GFR 57 L (59 - ) Glucose 129 mg/dL H mg/dL (65-105) Calcium 8.4 mg/dL mg/dL (8.4-10.2) Magnesium 1.9 mg/dL mg/dL (1.6-2.3) Total Bilirubin 0.8 mg/dL mg/dL (0.2-1.3) AST 49 U/L H U/L (14-36) ALT 36 U/L H U/L (4-35) Alkaline Phosphatase 85 U/L U/L (38-126) Total Protein 7.0 g/dL g/dL (6.3-8.2) Albumin 3.7 g/dL g/dL (3.5-5.1) Patient hx anesthesia problems: none Family hx anesthesia problems: none PMFSH Past Medical History Medical History Acute ID ST elevation (STEMI) myocardial infarction Family History Family History (Updated 05/11/20 @ 19:11 by Marge Gregg RN) Mother Diabetes mellitus Hypertension Father Colon cancer Diabetes mellitus Congestive heart failure (CHF) Hypertension Kidney disease Colon adenocarcinoma Sibling Diabetes mellitus Social History Social History Years smoked: 2 Smoking status: Former smoker Tobacco type: cigarettes Smoking end date: 03/24/20 Alcohol intake: never Substance use: never Substance use type: does not use Gender identity (if verbalized by the patient): Female Spiritual care concerns: No Exam Day of Procedure 05/14/20 12:10
--- NOTE | 2020-05-14 12:16 | WPDANESEFPP ---
Anes - Eval Final PreProcedure Day of Procedure 05/14/20 12:16 Patient weight: overweight Heart: tachycardia Lungs: decreased breath sounds Airway: Mallampati scale class II Neurological: alert and oriented Last oral intake: >/= 8 hours ASA classification: III Emergent: no Anesthetic plan: proceed Informed Consent: The patient's anesthetic plan and its attendant risks and benefits were discussed with the patient/family/POA. Questions were solicited and answers provided to the satisfaction of the patient/family/POA.
--- NOTE | 2020-05-14 12:25 | ECG_ITS ---
Measurements Intervals [place] Rate: 73 P: 68 [place]: 200 QRS: -52 QRSD: 99 T: 127 QT: 466 QTc: 516 Interpretive Statements SINUS RHYTHM BORDERLINE AV CONDUCTION DELAY LEFT ANTERIOR FASCICULAR BLOCK CANNOT RULE OUT SEPTAL INFARCT, AGE INDETERMINATE T WAVE ABNORMALITY IN HIGH LATERAL LEADS- CONSIDER ISCHEMIA ABNORMAL ECG Electronically Signed On 05-14-2020 12:52:15 CDT by Bony Castellon D.O.
--- NOTE | 2020-05-14 13:02 | WPDTECDV ---
IVAN with Cardioversion Date of procedure: 05/14/20 Procedure Type: Transesophageal echocardiogram guided elective electrical cardioversion Diagnosis: atrial flutter with rapid ventricular response and variable AV block Indications: atrial flutter with rapid ventricular response and variable AV block Description of Procedure: Brief history present illness: Patient is a very pleasant 59 year female past medical history significant for remote mitral valve repair with mitral valve annuloplasty, hypertension, dyslipidemia who presented with VFib arrest successfully resuscitated x2 found to have total left main occlusion status post successful intervention stent implantation. Patient was found to be in atrial fibrillation with rapid ventricular response at presentation which amiodarone was initiated. She eventually organized atrial flutter with variable AV block remain tachycardic. She was referred for IVAN guided cardioversion in attempt restore sinus rhythm after starting systemic anticoagulation with enoxaparin 1 milligram/kilogram subcutaneous q.12 hours. Procedure in detail: After verbal and written informed consent was obtained the patient risks, benefits, and alternatives explained in detail the patient agreed to proceed with the plan of care as outlined above. Patient was evaluated at bedside in the PACU. On examination, neck was supple with normal range of motion, no restrictions to opening of the oral cavity, jaw angle and posterior hypopharynx was clear. Lungs were clear to auscultation. The patient has breast implants. Patient was placed in appropriate 30 to 45 degree angle in a supine, slight left lateral decubitus position. Patient was monitored throughout the study with telemetry, oxygen saturation, end-tidal CO2 monitoring, blood pressure, heart rate, and respirations. Anterior and posterior defibrillator pads placed in the appropriate positions. please see anesthesiology documentation for details and protocols with regards to anesthesia administration. After placement of the oral bite block and confirmation of adequate sedation, the transesophageal echocardiogram probe was advanced into the posterior hypopharynx and into the esophagus easily and without complication. Multiple, multiplanar echocardiographic images were obtained in multiple standard re-projections. Pulsed wave, continuous-wave, and color-flow Doppler were utilized in conjunction with this study. At the conclusion of the study, the transesophageal echocardiogram probe was removed easily and without complication. Patient tolerated the procedure well without difficulty. Patient was in atrial flutter throughout the study. Her life vest was removed prior to procedure to minimize device complications with cardioversion. Sedation: Anesthesia administration: Please see anesthesiology documentation for details and protocols with regards to sedation administration. Findings: Findings: Left ventricular size is normal with akinetic anterior and apical segments with severe LV systolic dysfunction and visually estimated ejection fraction of 25-30%. LV wall thickness normal. Right ventricular size and systolic function within normal limits. Left atrium was moderately enlarged. Spontaneous contrast noted within the left atrium. Right atrial size within normal limits. Interatrial septum anatomically normal without evidence of shunt with color-flow Doppler nor with injection of agitated saline. Mitral Valve leaflets thickened with evidence of prior mitral annuloplasty ring and mild mitral regurgitation with at least 2 separate small regurgitant jets identified. Tricuspid valve is not well visualized in all views but appears anatomically normal with normal leaflet excursion with mild regurgitation identified. No mobile elements identified. Aortic valve was anatomically normal 3 leaflet structure with normal leaflet excursion and no regurgitation identified. Pulmonic valve was
--- NOTE | 2020-05-14 14:24 | PM.DS ---
DS: Admitting Diagnosis Admitting Diagnosis Admitting Diagnosis: Acute myocardial infarction, VFib DS: Discharge Diagnosis Discharge Diagnosis (1) Ventricular fibrillation: Code(s): I49.01 - Ventricular fibrillation Status: Acute (2) Atrial fibrillation with rapid ventricular response: Code(s): I48.91 - Unspecified atrial fibrillation Status: Acute (3) Atrial flutter with rapid ventricular response: Code(s): I48.92 - Unspecified atrial flutter Status: Acute (4) Ischemic cardiomyopathy: Code(s): I25.5 - Ischemic cardiomyopathy Status: Acute (5) ST elevation (STEMI) myocardial infarction: Code(s): I21.3 - ST elevation (STEMI) myocardial infarction of unspecified site Status: Acute (6) History of mitral valve repair: Code(s): Z98.890 - Other specified postprocedural states Status: Acute DS: Summary Hospital Course Reason for hospitalization: Ventricular fibrillation arrest, ST-elevation ID Hospital Course: patient is a 59-year-old female with a history of remote mitral valve repair/annuloplasty ring, hypertension, dyslipidemia followed by Dr. Strauss suddenly developed chest discomfort nausea and diaphoresis with loss of consciousness with EMS found to be in ventricular fibrillation arrest for which she also received 2 defibrillations with successful resuscitated her. She arrived to the emergency department where her electrocardiogram revealed atrial fibrillation with rapid ventricular response and acute ST-elevation anterolateral leads. She was emergently taken to the cardiac catheterization lab which revealed acute thrombotic occlusion of the mid LAD. She underwent a emergency revascularization which was successful with balloon angioplasty and placement of a 3.5 x 15 mm Orsiro ELLY to the Left Main with post dilation with 5.0 noncompliant balloon with IVUS guidance for confirmation of stent strut wall apposition. she remained remarkably stable through this intervention. Given presentation she was started on intravenous amiodarone for atrial fibrillation with rapid ventricular response and which she eventually organized into atrial flutter with variable AV block. Given persistence prior to discharge she underwent IVAN guided elective electrical cardioversion with orthodoxy of sinus rhythm. She did very well throughout hospitalization tolerated medical therapy. She was initiated on beta-blockers, ARB and maintained with aspirin and Brilinta. Prior to discharge she was changed to oral amiodarone 400 mg daily, Toprol XL 25 mg daily, and Eliquis 5 mg twice daily. Coordination with her primary corporate legal secretary Dr. Sergio Strauss with regards to her hospitalization, plan of care, and discharge occurred throughout. 2D echocardiogram was obtained which revealed severe LV dysfunction EF 25-30% akinetic apex and anterior wall. IVAN guided cardioversion occurred day of discharge without complication. She was discharged in stable and improved condition without anginal symptoms, no right groin catheterization site arterial complications and was tolerating medications without difficulty. Time Spent with Patient Time attestation: Total time spent providing and/or coordinating discharge services: 45 minutes Time spent: Greater than 30 minutes Exam Narrative: Exam Narrative: General: Well developed, alert and oriented x3. No apparent distress, comfortable, pleasant, and cooperative. Head: atraumatic, normocephalic Eyes: EOM intact, sclerae anicteric, conjunctivae unremarkable Ears/Nose: external inspection of ears and nose were grossly normal Mouth/Throat: oral mucosa pink and moist Neck: supple, normal range of motion, no jugular venous distention or carotid bruits, thyroid nonpalpable, trachea midline. Cardiac: Regular rate and rhythm, normal S1-S2, no murmurs, clicks, gallops, or rubs. Lungs: Clear to auscultation bilaterally, no rales, wheezes, or rhon
== END 2020-05-14 17:00 | disposition home or self-care (01) | DRG 246 ==
LOC: ANHED 17:00 → ANHICU 18:24 → ANHIMU 05-13 16:25 → ANHICU 05-17 12:12 → ANHIMU 05-17 12:12
PROVIDERS: Internal Medicine; Admitting Provider Specialist; Emergency Provider Emergency Medicine; PCP Family Medicine; Visit Provider Internal Medicine Cardiovascular Disease
PROC: 4A023N7 Measurement of Cardiac Sampling and Pressure, Left Heart, Percutaneous Approach (ICD-10-PCS; CPT 93452; principal; 2020-05-11 17:05)
PROC: 5A2204Z Restoration of Cardiac Rhythm, Single (ICD-10-PCS; 2020-05-11 17:05)
PROC: 5A2204Z Restoration of Cardiac Rhythm, Single (ICD-10-PCS; 2020-05-11 17:05)
PROC: 5A2204Z Restoration of Cardiac Rhythm, Single (ICD-10-PCS; principal; 2020-05-14 12:00)
PROC: (CPT 93312; 2020-05-14 12:00)
DX: I21.09 ST elevation (STEMI) myocardial infarction involving other coronary artery of anterior wall (principal); I49.01 Ventricular fibrillation; I48.92 Unspecified atrial flutter; R41.89 Other symptoms and signs involving cognitive functions and awareness; I48.91 Unspecified atrial fibrillation; I25.5 Ischemic cardiomyopathy; I12.9 Hypertensive chronic kidney disease with stage 1 through stage 4 chronic kidney disease, or unspecified chronic kidney disease; I44.30 Unspecified atrioventricular block; E78.5 Hyperlipidemia, unspecified; F41.9 Anxiety disorder, unspecified; N18.9 Chronic kidney disease, unspecified; Z95.2 Presence of prosthetic heart valve; Z87.891 Personal history of nicotine dependence
CPT/HCPCS: 36415; 51702; 80053; 80061; 80307; 81001; 83735; 83880; 84484; 85025; 85027; 85610; 92960; 92978; 93005; 93312; 93320; 93325; 93458; 99291; A9270; C1725; C1753; C1769; C1874; C1887; C1894; C8929; C9606; J0282; J0461; J0583; J1644; J1650; J2370; J2405; J2704; J3475; J7040; Q9957

== ENCOUNTER 2020-08-30 13:30 | Outpatient (RCR) | payer OTHER, SELFPAY ==
[2020-06-04 09:02] VITALS: PULSE 89
--- NOTE | 2020-06-14 11:15 | PCCPR ---
Absent due to low B/P Ted called states she is light headed and dizzy this am and having a hard time with enough energy to get up to get ready. States her B/P is running in the low 70's/40's. Encouraged her to drink water and let her MD know. States she has before and they told her they want it low. Reinforced most likely not that low and usually without symptoms such as lightheadedness or dizziness.
--- NOTE | 2020-07-05 12:07 | PCCPR ---
Chip called in stating they are rushing her Dad to the hospital, he had stopped breathing.
--- NOTE | 2020-08-23 12:35 | PCCPR ---
Ted absent today, not feeling well, has a migraine, plans to return Sunday.
--- NOTE | 2020-09-01 08:25 | PCCPR ---
Ted absent today and tomorrow. Ted's father is on hospice and family has been called in for imminent .
== END 2020-08-30 23:59 | disposition home or self-care (01) ==
LOC: ANHCPREHAB 13:30
PROVIDERS: PCP Family Medicine; Visit Provider Internal Medicine Cardiovascular Disease
DX: I21.3 ST elevation (STEMI) myocardial infarction of unspecified site (principal)
CPT/HCPCS: 93798

== ENCOUNTER 2020-09-15 13:30 | Outpatient (RCR) | payer OTHER, SELFPAY | END 2020-09-15 15:35 | disposition home or self-care (01) | LOC: ANHCPREHAB 13:30 | PROVIDERS: PCP Family Medicine; Visit Provider Internal Medicine Cardiovascular Disease | DX: I25.2 Old myocardial infarction (principal) | CPT/HCPCS: 93798 ==

== ENCOUNTER → 2020-12-11 09:04 | Outpatient (CLI) | payer OTHER, SELFPAY ==
--- NOTE | ~2020-12-11 | US_ITS ---
EXAMINATION: US renal BI DATE: 12/11/2020 09:43 INDICATION: Stage III chronic kidney disease TECHNIQUE: Multiple ultrasound grayscale images of the kidneys were obtained. COMPARISON: CT abdomen and pelvis dated 06/15/2014 FINDINGS: The right kidney measures 9.1 x 4.0 x 4.0 cm. The left kidney measures 8.3 x 4.7 x 5.4 cm. The kidney s demonstrate normal echogenicity. There is no hydronephrosis in either kidney. No stones identified . The bladder is normal bilateral ureteral jets visualized on color Doppler. IMPRESSION: 1. Normal kidneys without hydronephrosis. Reviewed, dictated and finalized at location A.
== END ==
PROVIDERS: PCP Family Medicine; Visit Provider Internal Medicine Nephrology
DX: I12.9 Hypertensive chronic kidney disease with stage 1 through stage 4 chronic kidney disease, or unspecified chronic kidney disease (principal); N18.32 Chronic kidney disease, stage 3b
CPT/HCPCS: 76775

== ENCOUNTER 2022-02-01 00:29 | Day surgery (SDC) | payer OTHER, SELFPAY ==
[2022-01-25 09:17] VITALS: BMI 27.1
[2022-02-01 07:09] VITALS: BP 121/80; PULSE 102; RESP 18; TEMP 36.2; O2SAT 98
[2022-02-01] MEDS: LACTATED RINGERS 1,000 ML 150 ML IV CONT (07:11)
[2022-02-01] MEDS: levoFLOXacin 500 MG/D5W 100 ML 500 MG/100 ML BAG 100 MG IVPB (07:24)
--- NOTE | 2022-02-01 08:20 | PM.HPGS ---
History of Present Illness History of Present Illness Consent: Risks, benefits, and alternatives have been discussed and questions answered. Patient agrees to proceed with procedure. Chief complaint: family hx of colon ca, hx of colon polyps,neoplasm Narrative: Ted Rasmussen is a 61 year old female with colon polyp 7 years ago, father had colon cancer Review of Systems Constitutional: Constitutional: Denies headache(s) and Denies weakness Eyes: Eyes: Denies blurry vision ENT: Reports Normal hearing present, Denies headache(s) and Denies neck pain Cardiovascular: Cardiovascular: Denies chest pain and Denies dyspnea Respiratory: Respiratory: Denies dyspnea Gastrointestinal: Gastrointestinal: Reports no additional gastrointestinal complaints Genitourinary: Genitourinary: Denies dysuria Musculoskeletal: Musculoskeletal: Denies neck pain Integumentary/Breasts: Skin/Breast: Denies dry skin Neurologic: Reports Normal hearing present, Denies headache(s) and Denies weakness Psychiatric: Psychiatric: Denies anxiety Endocrine: Endocrine: Denies change in body appearance Hematologic/Lymphatic: Hematologic/Lymphatic: Denies easy bleeding Allergic/Immunologic: Allergic/Immunologic: Denies urticaria PMFSH Past Medical History Medical History (Updated 02/01/22 @ 08:21 by Ramon Gan MD) Acute [place] Anxiety BMI 27.0-27.9,adult COVID-19 Essential (primary) hypertension Family history of colon cancer in father Low kidney function Mixed hyperlipidemia ST elevation (STEMI) myocardial infarction Stage 3 chronic kidney disease Vitamin D deficiency Surgical History Surgical History History of intravascular stent placement Family History Family History Mother Diabetes mellitus Hypertension Family history of cardiovascular disease Breast cancer Father Colon cancer Diabetes mellitus Congestive heart failure (CHF) Kidney disease Colon adenocarcinoma Hypertension Family history of cardiovascular disease Sibling Diabetes mellitus Hypertension Kidney disease Grandparent Family history of heart disease in male family member before age 55 Hypertension Mother Family history of heart disease in male family member before age 55 Family history of kidney disease Family history of diabetes mellitus in first degree relative Hypertension Father No family history of hypertension Family history of malignant neoplasm Family history of diabetes mellitus in first degree relative Family history of cardiovascular disease Hypertension Other Cerebrovascular accident Social History Social History Years smoked: 2 Smoking status: Never smoker Tobacco type: cigarettes Second hand tobacco smoke exposure: No Smoking end date: 03/24/20 Alcohol intake: never Substance use: never Substance use type: does not use Living arrangements: with family Gender identity (if verbalized by the patient): Female Spiritual care concerns: No Meds Home Medications and Allergies Home Medications Medication Instructions Recorded Confirmed Type rosuvastatin 40 mg tablet 40 mg PO DAILY #90 tablet 05/18/20 02/01/22 Rx apixaban 5 mg tablet 2.5 mg PO Q12HR tablet 08/26/20 02/01/22 History ascorbic acid (vitamin C) 1 g PO DAILY 01/25/22 02/01/22 History cholecalciferol (vitamin D3) 125 mcg PO DAILY 01/25/22 02/01/22 History [Vitamin D3] cyanocobalamin (vitamin B-12) 1,000 mcg PO DAILY 01/25/22 02/01/22 History [Vitamin B-12] metoprolol succinate 25 mg PO DAILY 01/25/22 02/01/22 History polyethylene glycol 3350 [Miralax] 17 g PO DAILY PRN 01/25/22 02/01/22 History venlafaxine 37.5 mg PO DAILY 01/25/22 02/01/22 History zinc gluconate [Zinc-50] 50 mg PO DAILY 01/25/22 02/01/22 History Allergies Allergy/AdvRea
--- NOTE | 2022-02-01 08:28 | WPDANESEPPF ---
Anes - Initial Pre Proc Eval Procedure: Operation Date: 02/01/22 08:30 Proposed Procedures p Screening Colonoscopy - Ramon Gan MD Date/Time: 02/01/22 08:28 Surgeon: Ramon Gan MD Pre Op Diagnosis: family hx of colon ca, hx of colon polyps,neoplasm Patient Data Age: 61 Gender: F Height: 1.73 m Weight: 82.5 kg Last Vital Signs Temp 97.2 F L 02/01/22 07:09 Pulse 102 H 02/01/22 07:09 Resp 18 02/01/22 07:09 BP 121/80 02/01/22 07:09 Pulse Ox 98 02/01/22 07:09 Allergies Allergy/AdvReac Type Severity Reaction Status Date / Time Penicillins Allergy Severe Difficulty Verified 02/01/22 07:07 Breathing Sulfa (Sulfonamide Allergy Severe Difficulty Verified 02/01/22 07:07 Antibiotics) Breathing vancomycin Allergy Intermediate Hives Verified 02/01/22 07:07 atorvastatin Allergy Mild pain, Verified 02/01/22 07:07 anxiety, fatigue Home Medications Medication Instructions Recorded Confirmed Type rosuvastatin 40 mg tablet 40 mg PO DAILY #90 tablet 05/18/20 02/01/22 Rx apixaban 5 mg tablet 2.5 mg PO Q12HR tablet 08/26/20 02/01/22 History ascorbic acid (vitamin C) 1 g PO DAILY 01/25/22 02/01/22 History cholecalciferol (vitamin D3) 125 mcg PO DAILY 01/25/22 02/01/22 History [Vitamin D3] cyanocobalamin (vitamin B-12) 1,000 mcg PO DAILY 01/25/22 02/01/22 History [Vitamin B-12] metoprolol succinate 25 mg PO DAILY 01/25/22 02/01/22 History polyethylene glycol 3350 [Miralax] 17 g PO DAILY PRN 01/25/22 02/01/22 History venlafaxine 37.5 mg PO DAILY 01/25/22 02/01/22 History zinc gluconate [Zinc-50] 50 mg PO DAILY 01/25/22 02/01/22 History Patient hx anesthesia problems: none Family hx anesthesia problems: none Results Review: All pre-operative results and documents have been reviewed as part of the pre-operative evaluation. [facility] Past Medical History Medical History (Updated 02/01/22 @ 08:21 by Ramon Gan MD) Acute [place] Anxiety BMI 27.0-27.9,adult COVID-19 Essential (primary) hypertension Family history of colon cancer in father Low kidney function Mixed hyperlipidemia ST elevation (STEMI) myocardial infarction Stage 3 chronic kidney disease Vitamin D deficiency Surgical History Surgical History History of intravascular stent placement Family History Family History Mother Diabetes mellitus Hypertension Family history of cardiovascular disease Breast cancer Father Colon cancer Diabetes mellitus Congestive heart failure (CHF) Kidney disease Colon adenocarcinoma Hypertension Family history of cardiovascular disease Sibling Diabetes mellitus Hypertension Kidney disease Grandparent Family history of heart disease in male family member before age 55 Hypertension Mother Family history of heart disease in male family member before age 55 Family history of kidney disease Family history of diabetes mellitus in first degree relative Hypertension Father No family history of hypertension Family history of malignant neoplasm Family history of diabetes mellitus in first degree relative Family history of cardiovascular disease Hypertension Other Cerebrovascular accident Social History Social History Years smoked: 2 Smoking status: Never smoker Tobacco type: cigarettes Second hand tobacco smoke exposure: No Smoking end date: 03/24/20 Alcohol intake: never Substance use: never Substance use type: does not use Living arrangements: with family Gender identity (if verbalized by the patient): Female Spiritual care concerns: No Anes - Eval Final PreProcedure Day of Procedure 02/01/22 08:28 Patient weight: normal Heart: regular rate and rhythm Lungs: clear to auscultation Airway: Mallampati scale cla
[2022-02-01 08:42] VITALS: BP 88/53; PULSE 80; RESP 18; O2SAT 98
[2022-02-01 08:50] VITALS: BP 107/69; PULSE 77; RESP 18; O2SAT 98
[2022-02-01 09:00] VITALS: BP 99/58; PULSE 77; RESP 18; O2SAT 99
== END 2022-02-01 09:20 | disposition home or self-care (01) ==
PROVIDERS: PCP Family Medicine; Visit Provider Internal Medicine Gastroenterology
PROC: 0DJD8ZZ Inspection of Lower Intestinal Tract, Via Natural or Artificial Opening Endoscopic (ICD-10-PCS; CPT 45378; principal; 2022-02-01 08:30)
DX: Z12.11 Encounter for screening for malignant neoplasm of colon (principal); D12.0 Benign neoplasm of cecum; K63.5 Polyp of colon; K64.8 Other hemorrhoids; Z80.0 Family history of malignant neoplasm of digestive organs; E78.2 Mixed hyperlipidemia; I12.9 Hypertensive chronic kidney disease with stage 1 through stage 4 chronic kidney disease, or unspecified chronic kidney disease; N18.30 Chronic kidney disease, stage 3 unspecified; I25.2 Old myocardial infarction; E55.9 Vitamin D deficiency, unspecified; F41.9 Anxiety disorder, unspecified; Z95.820 Peripheral vascular angioplasty status with implants and grafts; Z87.891 Personal history of nicotine dependence
CPT/HCPCS: 45380; 45385; 88305; J1956; J2704; J7120

== ENCOUNTER 2023-02-08 14:29 | Outpatient (CLI) | payer MEDICARE, SELFPAY ==
--- NOTE | ~2023-02-08 | XR_ITS ---
XR shoulder LT min 2V 02/08/2023 14:50 Indication: Left shoulder pain. Lifting injury. Procedure: 4 views left shoulder Comparison: No prior studies for comparison. Findings: There is a loose body adjacent to the glenohumeral joint, consistent with avulsion fracture . Donor site not definitely seen. 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 No sign ificant soft tissue abnormality. Impression: 1: Ossific density adjacent to the glenohumeral joint, suspicious for avulsion fracture of uncertain origin. Reviewed, dictated and finalized at location L. Impression: 1: Ossific density adjacent to the glenohumeral joint, suspicious for avulsion fracture of uncertain origin.
== END 2023-02-08 14:30 | disposition home or self-care (01) ==
PROVIDERS: PCP Family Medicine; Visit Provider Family Medicine
DX: M25.512 Pain in left shoulder (principal)
CPT/HCPCS: 73030

== ENCOUNTER → 2023-02-12 08:19 | Outpatient (CLI) | payer MEDICARE, SELFPAY ==
--- NOTE | ~2023-02-12 | US_ITS ---
EXAMINATION: US thyroid DATE: 02/12/2023 08:35 INDICATION: Nontoxic single thyroid nodule. TECHNIQUE: Multiple ultrasound images of the thyroid were obtained. COMPARISON: None. FINDINGS: The right thyroid lobe measures 4.4 x 0.9 x 1.0 cm. The left thyroid lobe measures 4.7 x 1.8 x 1.5 c m. In the left thyroid lobe, there is a 2.1 cm solid, hypoechoic, wider than tall nodule with puncta te echogenic foci and peripheral calcifications (TI-RADS TR5). IMPRESSION: 1. Left thyroid nodule. The patient has a history of a benign biopsy 10 years ago. If this nodule has changed, ultrasound-guided fine-needle aspiration would be recommended. Reviewed, dictated and finalized at location A. IMPRESSION: 1. Left thyroid nodule. The patient has a history of a benign biopsy 10 years a go. If this nodule has changed, ultrasound-guided fine-needle aspiration would be recommended.
== END ==
PROVIDERS: PCP Family Medicine; Visit Provider Family Medicine
DX: E04.1 Nontoxic single thyroid nodule (principal)
CPT/HCPCS: 76536

== ENCOUNTER 2023-02-26 13:32 | Outpatient (RCR) | payer MEDICARE, SELFPAY ==
--- NOTE | 2023-02-26 15:03 | PTOPEVAL1 ---
Assessment and note entered by JT File, PT Evaluation Information Assessment Status Evaluation Diagnosis L shoulder and upper arm pain Onset 02/08/23 Subjective Information patient reports she injured her L shoulder in october lifting her dad who fell. she reports she picked him up like weight and layed him in bed. she reports since then, it has hurt every day . she reports she did feel a snap/pull in the L shoulder during the lift. she reports she is left handed. she reports she is unable to wash her back with the L hand, reach straight out to her side with the L hand to picker something, and at times has to picker the L arm to move it due to weakness. she reports the L arm feels heavy. Reported Pain Level Pain Score 0: Self Report Assessment PT Clinical Summary mrs. ley is a 62 yo female who presents to skilled PT services for evaluation and treatment of L shoulder pain. she presents today with signs and symptoms of RTC sydrome and biceps tendonitis of the L shoulder secondary to an injury lifting her father. she displays weakness, decreased rom, and pain in the L Shoulder. she would benefit from continued skilled PT to improve her objective/ functional deficits and return to her prior level functional activity performance/quality of life. Plan of Care Interventions Electrical Stimulation,Hot Pack/Cold Pack,Manual Therapy,Neuro Re-education,Patient/Caregiver Educati,Therapeutic Activities,Therapeutic Exercise PT Services Indicated Yes Treatment Frequency and 3x weekly for 12 visits Duration These treatments will address the objective and functional deficits as defined above. The patient will be advanced safely and appropriately in order for the patient to progress towards his/her prior level of function. Additional exercises will be introduced and as well as a comprehensive home exercise program upon discharge, if needed, ?to ensure carryover of functional gains achieved in the clinic. This treatment plan has been reviewed and agreement upon by the patient.
--- NOTE | 2023-02-26 15:03 | OPREHPOC ---
Outpatient Therapy Plan of Care This is a Multidisciplinary Plan of Care that may contain components documented by all disciplines (PT, OT, and ST.) PT Problem 1 PT Problem #1 Knowledge Deficit PT Goal 1 Goal 1. independent and compliant with HEP to improve tolerance for continued skilled PT and exercises Target Visit 6 PT Problem 2 PT Problem #2 Pain PT Goal 1 Goal 1. decrease pain at worst to 3/10 or less in the L shoulder to return to prior level functional activity performance and quality of life. Target Visit 12 PT Problem 3 PT Problem #3 Impaired Range of Motion PT Goal 1 Goal 1. arom L shoulder flexion to 160 degrees 2. arom L shoulder ER to 90 degrees 3. arom L shoulder IR to 60 degrees Target Visit 12 PT Problem 4 PT Problem #4 Impaired Strength PT Goal 1 Goal 1. L shoulder strength to 4+/5 or better in flexion, abduction, and ER Target Visit 12 PT Problem 5 PT Problem #5 Impaired Functional Mobil PT Goal 1 Goal 1. quick dash to display less than 20% functional deficits 2. patient to lift 5lbs overhead to tall shelf x10 without pain 3. patient to lift gallon of milk from waist level to shoulder level shelf Target Visit 12
== END 2023-03-07 11:05 | disposition home or self-care (01) ==
LOC: CHSPT 13:32
PROVIDERS: Visit Provider Family Medicine
DX: S49.92XD Unspecified injury of left shoulder and upper arm, subsequent encounter (principal)
CPT/HCPCS: 97014; 97110; 97161; G0283

== ENCOUNTER 2023-02-27 15:23 | Emergency (ER) | payer MEDICARE, SELFPAY ==
[2023-02-27] VITALS (14 sets, daily range): BP systolic 136–161; BP diastolic 78–98; PULSE 87–98; RESP 11–28; TEMP 36.4–36.8; O2SAT 91–98
--- NOTE | ~2023-02-27 | XR_ITS ---
EXAMINATION: XR chest 1V portable DATE: 02/27/2023 15:42 INDICATION: Shortness of breath. Chest pain. TECHNIQUE: A single frontal view of the chest was obtained. COMPARISON: Chest 2 views 09/05/2019 FINDINGS: There are airspace opacities in right lower lobe. No pleural effusion or pneumothorax. The heart size is normal. There are changes of heart valve replacement. IMPRESSION: 1. Airspace opacities in right lower lobe, consistent with atelectasis versus pneumonia. Reviewed, dictated and finalized at location A. IMPRESSION: 1. Airspace opacities in right lower lobe, consistent with atelectasis versus p neumonia.
--- NOTE | ~2023-02-27 | CT_ITS ---
. EXAMINATION: CTA chest PE protocol DATE: 02/27/2023 16:54 INDICATION: Shortness of breath. History of pulmonary embolism. TECHNIQUE: Computed tomography angiography (CTA) of the chest was performed with 100 mL Omnipaque-350 intravenous contrast timed to evaluate the pulmonary arteries. Coronal maximum intensity projection 3D-reconstructions were created by the technologist. Automated exposure control and iterative reconst ruction technique were employed. Exam dose: 279.61 mGy-cm total exam DLP. COMPARISON: 02/27/2023 portable AP chest FINDINGS: There is diagnostic contrast enhancement of the pulmonary arteries and no evidence of pulmo nary embolism. Heart size is within normal range. Status post mitral valve replacement. No thoracic aortic aneurysm or dissection. No hilar or mediastinal mass lesion or lymphadenopathy. No pericardial or pleural effusion. There is old pulmonary granulomatous disease including calcified right lower lobe pulmonary granuloma , calcified right hilar nodes. No pulmonary infiltrate or consolidation. There is probable discoid scarring versus discoid atelectas is the middle lobe. Very small sliding hiatal hernia. Normal morphology of the adrenal glands. Status post bilateral augmentation mammoplasty. IMPRESSION: No evidence of pulmonary embolism Reviewed, dictated and finalized at Location A. Reviewed, dictated and finalized at location L.
--- NOTE | 2023-02-27 15:32 | ECG_ITS ---
Measurements Intervals [place] Rate: 93 P: 64 KS: 196 QRS: 5 QRSD: 93 T: 66 QT: 361 QTc: 450 Interpretive Statements SINUS RHYTHM MINIMAL ST DEPRESSION [0.025+ mV ST DEPRESSION] ABNORMAL ECG COMPARED TO ECG 05/14/2020 12:47:17 ST (T WAVE) DEVIATION NOW PRESENT Electronically Signed On 02-28-2023 12:09:46 CDT by Anthony Morin M.D.
--- NOTE | 2023-02-27 15:33 | ED.CHESTPAIN ---
HPI - Chest Pain General Chief Complaint: Chest Pain Stated Complaint: chest pain/dizzy Time Seen by Provider: 02/27/23 15:31 History of Present Illness HPI narrative: Pt presents with several brief sharp episodes of CP starting last night and continuing today. Pt says they last a second and resolve and it has occurred several times. Pt says she had a heart attack several years ago. Pt checked her BP and it was 160/100. Pt also has a history of panic and anxiety. Pt has some SOB as well. Related Data Home Medications Medication Instructions Recorded Confirmed metoprolol succinate 25 mg 25 mg PO DAILY 01/25/22 02/27/23 tablet,extended release 24 hr Allergies Allergy/AdvReac Type Severity Reaction Status Date / Time Penicillins Allergy Severe Difficulty Verified 02/27/23 15:32 Breathing Sulfa (Sulfonamide Allergy Severe Difficulty Verified 02/27/23 15:32 Antibiotics) Breathing vancomycin Allergy Intermediate Hives Verified 02/27/23 15:32 atorvastatin Allergy Mild pain, Verified 02/27/23 15:32 anxiety, fatigue Review of Systems Review of Systems: cp, sob, anxiety All systems reviewed & are unremarkable except as noted in HPI and below PMFSH Past Medical History Medical History (Updated 02/27/23 @ 17:11 by Mali Soto III, DO) Acute [place] Anxiety BMI 27.0-27.9,adult BMI 29.0-29.9,adult CKD (chronic kidney disease) COVID-19 Essential (primary) hypertension Family history of colon cancer in father Low kidney function Mixed hyperlipidemia Overweight with body mass index (BMI) of [address] elevation (STEMI) myocardial infarction Stage 3 chronic kidney disease Tachycardia Thyroid nodule Vitamin D deficiency Surgical History Surgical History History of intravascular stent placement Family History Family History Mother Diabetes mellitus Hypertension Family history of cardiovascular disease Breast cancer Father Colon cancer Diabetes mellitus Congestive heart failure (CHF) Kidney disease Colon adenocarcinoma Hypertension Family history of cardiovascular disease Sibling Diabetes mellitus Hypertension Kidney disease Grandparent Family history of heart disease in male family member before age 55 Hypertension Mother Family history of heart disease in male family member before age 55 Family history of kidney disease Family history of diabetes mellitus in first degree relative Hypertension Father No family history of hypertension Family history of malignant neoplasm Family history of diabetes mellitus in first degree relative Family history of cardiovascular disease Hypertension Other Cerebrovascular accident Social History Social History Years smoked: 2 Smoking status: Never smoker Tobacco type: cigarettes Second hand tobacco smoke exposure: No Smoking end date: 03/24/20 Alcohol intake: never Substance use: never Substance use type: does not use Lack of Transportation: No Lack of Food: Never True Current Housing: I Have Housing Concerned About Future Housing: No Difficulty Paying Gas/Electric Bills: No Difficulty Paying for Meds: No Currently Unemployed: No Education: High School Diploma/GED Living arrangements: with family Occupation/Education: retired Gender identity (if verbalized by the patient): Female Spiritual care concerns: No Exam Const: General: cooperative, healthy appearing and no acute distress Nutritional Appearance: average body habitus Orientation/consciousness: patient oriented x3 Limitations: no limitations HENMT: Head: normal to inspection Neck: Neck: normal visual inspection and full ROM Chest: Chest palpation & inspection: normal inspection of the chest Resp: Effort & Inspection: normal re
[2023-02-27] MEDS: ASPIRIN 81 MG CHEWABLE TABLET 324 MG PO (15:43)
[2023-02-27 15:48] LABS: Basophils Absolute Auto 0.06 K/mm3 (0.00-0.10); Basophils Percent Auto 0.7 % (0.0-1.0); Eosinophils Absolute Auto 0.27 K/mm3 (0.02-0.50); Eosinophils Percent Auto 3.3 % (1.0-6.0); Hematocrit 42.1 % (35.0-49.0); Hemoglobin 13.9 g/dL (12.0-15.0); Immature Granulocyte Absolute 0.02 K/mm3 (0.00-0.00); Immature Granulocyte Percent A 0.2 % (0.0-0.0); Lymphocytes Absolute Auto 2.04 K/mm3 (1.10-4.50); Lymphocytes Percent Auto 25.3 % (18.0-42.0); Mean Corpuscular Hemoglobin 30.3 pg (27.0-31.0); Mean Corpuscular Volume 91.9 fL (78.0-102.0); Mean Platelet Volume 10.3 fl (9.2-11.8); Monocytes Absolute Auto 0.72 K/mm3 (0.10-0.90); Monocytes Percent Auto 8.9 % (2.0-11.0); Neutrophils Percent Auto 61.6 % (50.0-70.0); Platelet Count Result 254 K/mm3 (150-420); Red Blood Count 4.58 M/mm3 (4.20-5.40); Red Cell Distribution Width 13.4 % (11.6-14.4); White Blood Count 8.1 K/mm3 (4.8-10.8)
[2023-02-27 16:02] LABS: Partial Thromboplastin Time 29.5 SEC (23.90-30.70); Prothrombin Time 10.9 Seconds (9.50-12.10)
[2023-02-27 16:03] LABS: Alanine Aminotransferase 39 U/L (14-59); Albumin Level 3.9 g/dL (3.4-5.0); Alkaline Phosphatase 103 U/L (46-116); Anion Gap 13 mmol/L (8-16); Aspartate Amino Transferase 24 U/L (15-37); Bilirubin,Total 0.5 mg/dL (0.00-1.00); Blood Urea Nitrogen 15 mg/dL (7-18); Calcium 9.4 mg/dL (8.5-10.1); Carbon Dioxide 26 mmol/L (21-32); Chloride 101 mmol/L (98-108); Estimated Glomerular Filt Rate 30; Glucose 124 mg/dL (70-99); Osmolality Calculated 291 mOsm/kg (285-295); Potassium 3.6 mmol/L (3.5-5.1); Sodium 140 mmol/L (136-145); Total Protein 8.2 g/dL (6.4-8.2)
[2023-02-27 16:07] LABS: Troponin I 5.3 ng/L (0.00-60.4)
[2023-02-27] MEDS: SODIUM CHLORIDE 0.9% IV 1,000 ML 999 ML IV CONT (16:51)
== END 2023-02-27 17:42 | disposition home or self-care (01) ==
PROVIDERS: Emergency Provider Emergency Medicine; PCP Family Medicine
DX: R07.89 Other chest pain (principal); F41.9 Anxiety disorder, unspecified; I25.2 Old myocardial infarction; E78.2 Mixed hyperlipidemia; I12.9 Hypertensive chronic kidney disease with stage 1 through stage 4 chronic kidney disease, or unspecified chronic kidney disease; N18.30 Chronic kidney disease, stage 3 unspecified
CPT/HCPCS: 36415; 71045; 71275; 80053; 84484; 85025; 85610; 85730; 93005; 96360; 99284; A9270; J7030; Q9967

== ENCOUNTER 2023-04-09 09:11 | Emergency (ER) | payer MEDICARE, SELFPAY ==
[2023-04-09 09:15] VITALS: BP 143/93; PULSE 104; RESP 22; TEMP 36.8; O2SAT 98
--- NOTE | 2023-04-09 09:34 | ED.GENADULT ---
HPI - General Adult General Chief complaint: Nausea/Vomiting/Diarrhea Stated complaint: Nausea Time Seen by Provider: 04/09/23 09:15 History of Present Illness HPI narrative: 62yo woman feeling nervous and nauseous since her father last week. Feels dehydrated. Grieving strongly her father's passing. No physical pains, fever, diarrhea, or black or bloody stools. Related Data Home Medications Medication Instructions Recorded Confirmed metoprolol succinate 25 mg 25 mg PO DAILY 01/25/22 04/09/23 tablet,extended release 24 hr Allergies Allergy/AdvReac Type Severity Reaction Status Date / Time Penicillins Allergy Severe Difficulty Verified 04/09/23 09:14 Breathing Sulfa (Sulfonamide Allergy Severe Difficulty Verified 04/09/23 09:14 Antibiotics) Breathing vancomycin Allergy Intermediate Hives Verified 04/09/23 09:14 atorvastatin Allergy Mild pain, Verified 04/09/23 09:14 anxiety, fatigue Review of Systems Review of Systems: All systems reviewed & are unremarkable except as noted in HPI and below Constitutional: Constitutional: Denies fever(s) ENT: Denies dysphagia Cardiovascular: Cardiovascular: Denies chest pain Respiratory: Respiratory: Denies dyspnea [facility] Past Medical History Medical History Acute [place] Anxiety BMI 27.0-27.9,adult BMI 29.0-29.9,adult CKD (chronic kidney disease) COVID-19 Essential (primary) hypertension Family history of colon cancer in father Heart attack Low kidney function Mixed hyperlipidemia Overweight with body mass index (BMI) of 28 [address] elevation (STEMI) myocardial infarction Stage 3 chronic kidney disease Tachycardia Thyroid nodule Vitamin D deficiency Surgical History Surgical History History of intravascular stent placement Family History Family History Mother Diabetes mellitus Hypertension Family history of cardiovascular disease Breast cancer Father Colon cancer Diabetes mellitus Congestive heart failure (CHF) Kidney disease Colon adenocarcinoma Hypertension Family history of cardiovascular disease Sibling Diabetes mellitus Hypertension Kidney disease Depression Grandparent Family history of heart disease in male family member before age 55 Hypertension Diabetes mellitus Mother Family history of heart disease in male family member before age 55 Family history of kidney disease Family history of diabetes mellitus in first degree relative Hypertension Breast cancer Diabetes mellitus Depression Heart disease Father No family history of hypertension Family history of malignant neoplasm Family history of diabetes mellitus in first degree relative Family history of cardiovascular disease Hypertension Grandparent Diabetes mellitus Heart disease Other Cerebrovascular accident Social History Social History Years smoked: 2 Smoking status: Never smoker Tobacco type: cigarettes Second hand tobacco smoke exposure: No Smoking end date: 03/24/20 Alcohol intake: never Substance use: never Substance use type: does not use Lack of Transportation: No Lack of Food: Never True Current Housing: I Have Housing Concerned About Future Housing: No Difficulty Paying Gas/Electric Bills: No Difficulty Paying for Meds: No Currently Unemployed: No Education: High School Diploma/GED Living arrangements: with family Occupation/Education: retired Gender identity (if verbalized by the patient): Female Spiritual care concerns: No Exam Const: General: healthy appearing Nutritional Appearance: well nourished Other: anxious Eyes: Conjunctivae: conjunctivae normal Resp: Effort & Inspection: normal respiratory effort and no
[2023-04-09] MEDS: diphenhydrAMINE HCl INJ 50 MG/ML VIAL 25 MG IV PUSH (09:40)
[2023-04-09] MEDS: SODIUM CHLORIDE 0.9% IV 1,000 ML 999 ML IV CONT (09:41)
[2023-04-09] MEDS: METOCLOPRAMIDE HCL INJ 10 MG/2 ML VIAL IV PUSH (09:41)
[2023-04-09 09:43] LABS: Basophils Absolute Auto 0.05 K/mm3 (0.00-0.10); Basophils Percent Auto 0.6 % (0.0-1.0); Eosinophils Absolute Auto 0.05 K/mm3 (0.02-0.50); Eosinophils Percent Auto 0.6 % (1.0-6.0); Hematocrit 45.9 % (35.0-49.0); Hemoglobin 15.6 g/dL (12.0-15.0); Immature Granulocyte Absolute 0.03 K/mm3 (0.00-0.00); Immature Granulocyte Percent A 0.4 % (0.0-0.0); Lymphocytes Absolute Auto 1.69 K/mm3 (1.10-4.50); Lymphocytes Percent Auto 19.8 % (18.0-42.0); Mean Corpuscular Hemoglobin 30.7 pg (27.0-31.0); Mean Corpuscular Volume 90.4 fL (78.0-102.0); Mean Platelet Volume 10.8 fl (9.2-11.8); Monocytes Absolute Auto 0.57 K/mm3 (0.10-0.90); Monocytes Percent Auto 6.7 % (2.0-11.0); Neutrophils Absolute Auto 6.2 K/mm3 (1.7-7.2); Neutrophils Percent Auto 71.9 % (50.0-70.0); Platelet Count Result 259 K/mm3 (150-420); Red Blood Count 5.08 M/mm3 (4.20-5.40); Red Cell Distribution Width 12.9 % (11.6-14.4); White Blood Count 8.6 K/mm3 (4.8-10.8)
[2023-04-09 10:01] LABS: Alanine Aminotransferase 52 U/L (14-59); Albumin Level 4.1 g/dL (3.4-5.0); Alkaline Phosphatase 109 U/L (46-116); Anion Gap 14 mmol/L (8-16); Aspartate Amino Transferase 25 U/L (15-37); Bilirubin,Total 0.6 mg/dL (0.00-1.00); Blood Urea Nitrogen 14 mg/dL (7-18); Calcium 9.8 mg/dL (8.5-10.1); Carbon Dioxide 23 mmol/L (21-32); Chloride 99 mmol/L (98-108); Estimated CRCL calculation 35 ml/min; Estimated Glomerular Filt Rate 29; Glucose 169 mg/dL (70-99); Lipase 49 U/L (16-77); Magnesium 1.8 mg/dL (1.8-2.4); Osmolality Calculated 286 mOsm/kg (285-295); Potassium 3.8 mmol/L (3.5-5.1); Sodium 136 mmol/L (136-145); Total Protein 8.6 g/dL (6.4-8.2)
[2023-04-09 10:06] LABS: Lactic Acid Reflex 2.3 mmol/L (0.4-2.0)
[2023-04-09 10:14] VITALS: BP 127/72; PULSE 80; RESP 18; O2SAT 100
--- NOTE | 2023-04-09 10:26 | PC.NURSE ---
PT IS RESTING CALMLY ON STRETCHER WITH IVF INFUSING ORDERED WITHOUT DIFFICULTY. NAD NOTED. PT DENIES ANY NEEDS OR COMPLAINTS, AND IS AWARE OF NEED FOR URINE SAMPLE. WILL CONTINUE TO MONITOR.
[2023-04-09 11:18] VITALS: BP 130/77; PULSE 72; RESP 18; O2SAT 100
[2023-04-09 12:41] LABS: Reflex Lactic Acid Yes or No Add Lactic
== END 2023-04-09 11:25 | disposition home or self-care (01) ==
PROVIDERS: Emergency Provider Emergency Medicine; PCP Family Medicine
DX: F43.21 Adjustment disorder with depressed mood (principal); E78.2 Mixed hyperlipidemia; I12.9 Hypertensive chronic kidney disease with stage 1 through stage 4 chronic kidney disease, or unspecified chronic kidney disease; N18.30 Chronic kidney disease, stage 3 unspecified; I25.2 Old myocardial infarction; F41.9 Anxiety disorder, unspecified
CPT/HCPCS: 36415; 80053; 83605; 83690; 83735; 85025; 96361; 96374; 96375; 99284; J1200; J2765; J7030

== ENCOUNTER 2023-06-28 08:12 | Outpatient (CLI) | payer MEDICARE, SELFPAY ==
--- NOTE | ~2023-06-28 | MR_ITS ---
MRI of the left shoulder Technique: Axial proton-density fat-sat images, coronal proton density fat-sat and T2 fat-sat images, and sagittal T1-weighted and T2 fat-sat images were acquired. Clinical History: Pain Findings: There is mild AC joint degenerative change. No subacromial spur. Coracoclavicular, coracoac romial, and coracohumeral ligaments are intact. Supraspinatus and infraspinatus tendons are intact, without partial or full-thickness tear. There is focal mild to moderate tendinosis of the distal supraspinatus tendon. Subscapularis tendon is intact. Tendon of the long head of the biceps is intact. No definite labral tear identified. Small inferomedial humeral head spur is present. There is mild chondral thinning of the humeral head. Inferior glenohumeral ligament is intact. No fluid distention of the subacromial/subdeltoid bursa. N o muscle atrophy or edema. Impression: Minimal degenerative change of the AC joint and glenohumeral joint. No rotator cuff tear or labral tear evident. Reviewed, dictated and finalized at location . Impression: Minimal degenerative change of the AC joint and glenohumeral joint. No rotator cuff tear or labral tear evident.
== END 2023-06-28 08:13 | disposition home or self-care (01) ==
LOC: CHSIMG 08:13
PROVIDERS: PCP Family Medicine; Visit Provider Physician Assistant Medical
DX: M25.512 Pain in left shoulder (principal)
CPT/HCPCS: 73221